=== PATIENT | female | born 1940 | race Caucasian/White ===

== ENCOUNTER 2022-01-18 14:06 | Outpatient (CLI) | payer BC, SELFPAY ==
--- NOTE | 2022-01-18 14:00 | CRLHL7_ITS ---
For Patients: As a result of the Century Cures Act, medical imaging exams and procedure reports are released immediately into your electronic medical record. You may view this report before your referring provider. If you have questions, please contact your health care provider. DXA BONE MINERAL DENSITY STUDY Reason for exam: Osteoporosis. Current height (in): 59. Weight (lb): 125. Menopause age: 55. Ethnicity: White. 1. Have you had a previous hip or vertebral fracture? Yes. 2. Have you had any fractures during your adult life which did not result from significant trauma (e.g., auto accident)? Yes. 3. Did either of your parents have a hip fracture? Yes. 4. Do you smoke? No. 5. Have you ever taken Glucocorticoids? No. 6. Do you have rheumatoid arthritis? No. 7. Do you have secondary osteoporosis? No. 8. Do you drink 3 or more alcoholic drinks per day? No. 9. Are you being treated for osteoporosis? Yes. 10. Have you ever taken any of the following medications: Actonel, Evista, Fosamax, Miacalcin, Reclast, Boniva, Forteo, HRT (i.e. estrogen/hormone therapy), Protelos, Prolia, Vitamin D, Calcium, other ??? please specify. ANSWER: Yes, Fosamax, vitamin D, calcium, Prolia. 11. Do you have any of the following medical conditions: Anorexia or bulimia, asthma or emphysema, end stage renal disease, hyperparathyroidism, any seizure disorders, cancer, inflammatory bowel diseases, hysterectomy, other ??? please specify. ANSWER: Yes, cancer, hysterectomy. 12. What was your maximum height (inches)? 61. 13. Do you perform weight bearing exercise regularly? No. 14. Do you regularly consume dairy products? Yes. 15. Do you drink caffeinated beverages? Yes. 16. At what age did your period start? 12. 17. Are you premenopausal? No. 18. How many full term pregnancies have you had? 3. 19. Have you ever missed your period for more than 6 months in a row (not including or menopause)? No. TECHNIQUE: Bone mineral density study was performed using the [employer]. FINDINGS: The results of the study expressed as bone mineral density (BMD) are as follows: Lumbar spine L1 to L4: BMD: 0.713 g/cm2. T-score: -3.0. Z-score: -0.3. Neck Right: BMD: 0.577 g/cm2. T-score: -2.5. Z-score: -0.1. Total Right: BMD: 0.735 g/cm2. T-score: -1.7. Z-score: 0.4 IMPRESSION: Osteoporosis. *Comparison exams done prior to 09/2019 were performed on different unit, [employer]. COMPARISON: Compared with scan of 12/21/2020, the bone mineral density has increased by 2.4 percent at the spine and increased by 3.7 percent at the hip. Bridgett Fleming M.D. Diagnostic/Breast Radiologist [email or web address] RICK/Dictated by: Bridgett Fleming MD @ 01/18/2022 3:23:00 PM (Electronically Signed)
== END 2022-01-18 14:07 | disposition home or self-care (01) ==
LOC: RAD 14:07
PROVIDERS: PCP Family Medicine; Visit Provider Nurse Practitioner Family
DX: M81.0 Age-related osteoporosis without current pathological fracture (principal)
CPT/HCPCS: 77080

== ENCOUNTER 2022-01-25 15:00 | Outpatient (RCR) | payer BC, SELFPAY ==
--- NOTE | 2022-01-02 08:48 | URNOTE ---
UR Note 06/21/21 per Ilana Cruz RN: Patient: Cristy Chong : 1940 Age/Sex: 81/F Unit#: [id number] Account#: Multiple Room/Bed: User: Ilana Cruz Date: 06/21/21 10:27 Type: Eligibility Determination Note... Received request for prior auth for Zoledronic Acid (J3489). Per BS, [facility] REf #[id number]
[2022-01-16 14:33] LABS: Calcium* 9.2 mg/dL (8.4-10.6); Creatinine* 0.8 mg/dL (0.5-1.5); Est. Creatinine Clearance* 31.69; Estimated Glomerular Filt Rate 74 ml/min
[2022-01-17] MEDS: ZOLEDRONIC ACID 3 MG in 0.9 % SODIUM CHLORIDE 100 ml 100 ML 400 MG IVPB (14:28)
[2022-01-17 15:01] VITALS: BP 114/72; PULSE 70; RESP 16; TEMP 36.6; O2SAT 99
== END 2022-07-15 23:59 | disposition home or self-care (01) ==
LOC: CCIC 15:00
PROVIDERS: PCP Family Medicine; Referring Provider Family Medicine; Visit Provider Nurse Practitioner Family
DX: C50.912 Malignant neoplasm of unspecified site of left female breast (principal); Z17.0 Estrogen receptor positive status [ER+]; Z79.811 Long term (current) use of aromatase inhibitors; M81.0 Age-related osteoporosis without current pathological fracture
CPT/HCPCS: 36415; 82310; 82565; 96374; 99212; 99214; J3489

== ENCOUNTER 2023-01-18 10:00 | Outpatient (RCR) | payer BC, SELFPAY ==
--- NOTE | 2022-07-18 13:47 | URNOTE ---
Request received for authorization for Zoledronic Acid (J3489). Prior authorization not required per from 07/23/2022 to 07/24/2023, 2 doses, Ref#[id number].
[2022-07-23 10:08] LABS: Chloride* 102 mmol/L (96-114); Potassium* 4.3 mmol/L (3.6-5.1); Sodium* 134 mmol/L (135-149)
[2022-07-23 10:10] LABS: Creatinine* 0.7 mg/dL (0.5-1.5); Estimated Glomerular Filt Rate 87 ml/min
[2022-07-23 10:11] LABS: Blood Urea Nitrogen* 20 mg/dL (7-30); Calcium* 8.8 mg/dL (8.4-10.6); Carbon Dioxide* 28 mmol/L (20-32); Glucose* 97 mg/dL (60-115)
[2022-07-23] MEDS: ZOLEDRONIC ACID 3 MG in 0.9 % SODIUM CHLORIDE 100 ml 100 ML 415 MG IVPB (11:15)
[2023-01-18 10:43] LABS: Creatinine* 0.8 mg/dL (0.5-1.5); Estimated Glomerular Filt Rate 74 ml/min
[2023-01-18 10:44] LABS: Calcium* 9.2 mg/dL (8.4-10.6)
== END 2023-01-19 23:59 | disposition home or self-care (01) ==
LOC: CCIC 10:00
PROVIDERS: PCP Family Medicine; Referring Provider Family Medicine; Visit Provider Internal Medicine Hematology & Oncology
DX: C50.912 Malignant neoplasm of unspecified site of left female breast (principal); Z79.810 Long term (current) use of selective estrogen receptor modulators (SERMs); M81.0 Age-related osteoporosis without current pathological fracture
CPT/HCPCS: 36415; 80048; 82310; 82565; 96374; 99212; 99214; J3489

== ENCOUNTER 2023-01-24 14:26 | Outpatient (CLI) | payer BC, SELFPAY ==
--- NOTE | 2023-01-24 15:30 | CRLHL7_ITS ---
For Patients: As a result of the Century Cures Act, medical imaging exams and procedure reports are released immediately into your electronic medical record. You may view this report before your referring provider. If you have questions, please contact your health care provider. DXA BONE MINERAL DENSITY STUDY Reason for exam: Osteoporosis. Current height (in): 59. Weight (lb): 121. Menopause age: 55. Ethnicity: White. 1. Have you had a previous hip or vertebral fracture? Yes. 2. Have you had any fractures during your adult life which did not result from significant trauma (e.g., auto accident)? Yes. 3. Did either of your parents have a hip fracture? Yes. 4. Do you smoke? No. 5. Have you ever taken Glucocorticoids? No. 6. Do you have rheumatoid arthritis? No. 7. Do you have secondary osteoporosis? No. 8. Do you drink 3 or more alcoholic drinks per day? No. 9. Are you being treated for osteoporosis? Yes. 10. Have you ever taken any of the following medications: Actonel, Evista, Fosamax, Miacalcin, Reclast, Boniva, Forteo, HRT (i.e., estrogen/hormone therapy), Protelos, Prolia, Vitamin D, Calcium, other ??? please specify. ANSWER: Yes, Fosamax, vitamin D, Prolia, and calcium. 11. Do you have any of the following medical conditions: Anorexia or bulimia, asthma or emphysema, end stage renal disease, hyperparathyroidism, any seizure disorders, cancer, inflammatory bowel diseases, hysterectomy, other ??? please specify. ANSWER: Yes, cancer and hysterectomy. 12. What was your maximum height (inches)? 61. 13. Do you perform weight bearing exercise regularly? No. 14. Do you regularly consume dairy products? Yes. 15. Do you drink caffeinated beverages? Yes. If female: 16. At what age did your period start? 12. 17. Are you premenopausal? No. 18. How many full-term pregnancies have you had? 3. 19. Have you ever missed your period for more than 6 months in a row (not including or menopause)? No. TECHNIQUE: Bone mineral density study was performed using the [employer]. FINDINGS: The results of the study expressed as bone mineral density (BMD) are as follows: Lumbar spine L1 to L4: BMD: 0.722 g/cm2. T-score: -3.0. Z-score: -0.2 Neck Right: BMD: 0.607 g/cm2. T-score: -2.2. Z-score: 0.2 Total Right: BMD: 0.744 g/cm2. T-score: -1.6. Z-score: 0.6 IMPRESSION: Osteoporosis. *Comparison exams done prior to 09/2019 were performed on different unit, [employer]. COMPARISON: Compared with scan of 01/18/2022, the bone mineral density has increased by 1.2 percent at the spine and increased by 1.1 percent at the hip. Compared with scan of 12/21/2020, the bone mineral density has increased by 2.4 percent at the spine and increased by 3.7 percent at the hip. Enrrique Jimenez M.D. Diagnostic Radiologist [email or web address] SOLIS/yoly frederick/Dictated by: Enrrique Jimenez MD @ 01/25/2023 8:47:00 AM (Electronically Signed)
== END 2023-01-24 14:27 | disposition home or self-care (01) ==
LOC: RAD 14:26
PROVIDERS: PCP Family Medicine; Visit Provider Internal Medicine Hematology & Oncology
DX: M81.0 Age-related osteoporosis without current pathological fracture (principal); M85.89 Other specified disorders of bone density and structure, multiple sites; C50.912 Malignant neoplasm of unspecified site of left female breast
CPT/HCPCS: 77080

== ENCOUNTER 2023-02-18 09:12 | Outpatient (CLI) | payer BC, SELFPAY ==
--- NOTE | 2023-02-18 09:15 | CRLHL7_ITS ---
For Patients: As a result of the Cures Act, medical imaging exams and procedure reports are released immediately into your electronic medical record. You may view this report before your referring provider. If you have questions, please contact your health care provider. Indication: Left axillary lump, history of breast cancer Technique: Grayscale and color Doppler ultrasound of the left axilla performed. Findings: An enlarged lymph node is present within the left axilla with hypoechoic internal echotexture measuring 1.2 x 1.1 x 1.1 cm. No abnormal vascularity. Impression: Enlarged left axillary lymph node measuring 1.2 cm. Biopsy recommended. However, the patient would prefer to wait 6 weeks as she recently had her influenza/COVID vaccination and there is a possibility that this is simply a reactive lymph node. Therefore, a 6 week follow-up left axillary ultrasound is recommended. If the lymph node has not changed then biopsy would be indicated. Dictated by Enrrique Jimenez MD @ 02/20/2023 6:30:12 AM (Electronically Signed)
== END 2023-02-18 09:13 | disposition home or self-care (01) ==
PROVIDERS: PCP Family Medicine; Visit Provider Internal Medicine Hematology & Oncology
DX: R22.32 Localized swelling, mass and lump, left upper limb (principal); R59.0 Localized enlarged lymph nodes; Z85.3 Personal history of malignant neoplasm of breast
CPT/HCPCS: 76882

== ENCOUNTER 2023-04-01 09:18 | Outpatient (CLI) | payer BC, SELFPAY ==
--- NOTE | 2023-04-01 09:15 | CRLHL7_ITS ---
For Patients: As a result of the Cures Act, medical imaging exams and procedure reports are released immediately into your electronic medical record. You may view this report before your referring provider. If you have questions, please contact your health care provider. INDICATION: 82-year-old female. History of LEFT-sided breast cancer. Lumpectomy. Radiation therapy. No chemotherapy. No lymph nodes were involved at the time of the initial surgery. Recent COVID-19 inoculation approximately 6 to 8 weeks ago. Follow-up a LEFT axillary lymph node. TECHNIQUE: Directed LEFT axillary ultrasound with this radiologist present. COMPARISON: 02/18/2023. FINDINGS: There is a 1.3 x 0.7 x 0.8 cm LEFT axillary lymph node oval-shaped and homogeneously hypoechoic. It maintains a reniform shape but the fatty hilus is somewhat diminutive. This could reflect a reactive lymph node. There has been no significant change when compared to 02/18/2023. Per Dr. Jimenez`s original dictation from 02/18/2023, a biopsy would be indicated. These findings were discussed in detail with the patient. She agrees to proceed with the biopsy. This will be scheduled. Impression: Hypoechoic well-circumscribed LEFT axillary lymph node. This could be reactive. Biopsy suggested. ACR not applicable Dictated by Nikita Chin MD @ 04/01/2023 12:07:52 PM (Electronically Signed)
== END 2023-04-01 09:19 | disposition home or self-care (01) ==
LOC: US 09:19
PROVIDERS: PCP Family Medicine; Visit Provider Internal Medicine Hematology & Oncology
DX: C50.912 Malignant neoplasm of unspecified site of left female breast (principal); R59.9 Enlarged lymph nodes, unspecified
CPT/HCPCS: 76882

== ENCOUNTER 2023-04-16 10:53 | Outpatient (CLI) | payer BC, SELFPAY ==
--- NOTE | 2023-04-16 11:15 | CRLHL7_ITS ---
For Patients: As a result of the Century Cures Act, medical imaging exams and procedure reports are released immediately into your electronic medical record. You may view this report before your referring provider. If you have questions, please contact your health care provider. Indication: ENLARGED LEFT AXILLARY LYMPH NODE Technique: Grayscale and color Doppler ultrasound performed. Comparison: 04/01/2023 Findings: Decreased size of the hypoechoic area of concern compared to the prior examination with real-time imaging. The area elongates with shoulder abduction during the procedure prep. Overlying vessels are present. This area does not appear suspicious and therefore no biopsy was performed. Impression: No biopsy performed. Decreased size of the previously noted lymph node. No suspicious findings. Patient is due for screening mammogram next month at [facility]. Dictated by Enrrique Jimenez MD @ 04/16/2023 12:00:17 PM (Electronically Signed)
== END 2023-04-16 10:54 | disposition home or self-care (01) ==
PROVIDERS: PCP Family Medicine; Visit Provider Internal Medicine Hematology & Oncology
DX: R59.0 Localized enlarged lymph nodes (principal)
CPT/HCPCS: 76882

== ENCOUNTER 2023-07-18 09:45 | Outpatient (RCR) | payer BC, SELFPAY ==
[2023-01-24 14:41] VITALS: BP 116/73; PULSE 67; RESP 16; TEMP 36.5; O2SAT 99
[2023-01-24] MEDS: ZOLEDRONIC ACID 3 MG in 0.9 % SODIUM CHLORIDE 100 ml 100 ML 400 MG IVPB (14:50)
--- NOTE | 2023-07-16 14:34 | URNOTE ---
Per [facility] prior authorization is not required for Zometa (J3489). REf #[id number]
[2023-07-18 10:18] LABS: Calcium* 9.3 mg/dL (8.4-10.6); Creatinine* 0.7 mg/dL (0.5-1.5); Estimated Glomerular Filt Rate 86 ml/min
[2023-07-18] MEDS: ZOLEDRONIC ACID 3 MG in 0.9 % SODIUM CHLORIDE 100 ml 100 ML 415 MG IVPB (11:12)
[2023-07-18 11:31] LABS: Basophils Percent Auto 0.9 % (0.0-3.0); Eosinophils Percent Auto 3.4 % (0.0-7.0); Hematocrit 34.6 % (33.0-51.0); Hemoglobin* 11.4 gm/dL (12.0-16.0); Immature Granulocytes Pct Auto 0.2 %; Lymphocytes Percent Auto 24.6 % (20-44); Mean Corpuscular HGB Conc 33 gm/dL (32-36); Mean Corpuscular Hemoglobin 33 pg (26-34); Mean Corpuscular Volume 99 fL (80-100); Monocytes Percent Auto 9.5 % (0.0-11.0); Neutrophils Percent Auto 61.4 % (42.0-72.0); Platelet Count* 206 K/uL (140-440); RDW Coefficient of Variation % 13.6 % (11.5-15.5); White Blood Count* 4.43 K/uL (4.50-11.00)
[2023-07-18 11:32] LABS: Albumin* 3.9 g/dL (3.3-5.0); Chloride* 104 mmol/L (96-114); Potassium* 4.6 mmol/L (3.6-5.1); Sodium* 147 mmol/L (135-149)
[2023-07-18 11:34] LABS: Bilirubin Total* 0.4 mg/dL (0.1-1.5); Creatinine* 0.7 mg/dL (0.5-1.5); Estimated Glomerular Filt Rate 86 ml/min; Slide Review Reflex No
[2023-07-18 11:35] LABS: Alanine Aminotransferase* 18 U/L (4-35); Alkaline Phosphatase* 41 U/L (40-150); Anion Gap 17 mEq/L (7-15); Aspartate Amino Transferase* 52 U/L (12-35); Blood Urea Nitrogen* 18 mg/dL (7-30); Carbon Dioxide* 26 mmol/L (20-32); Glucose* 90 mg/dL (60-115); Total Protein* 6.9 g/dL (6.0-8.3)
[2023-07-18 11:36] LABS: Calcium* 9.4 mg/dL (8.4-10.6); Magnesium* 2.2 mg/dL (1.5-2.6)
[2023-07-18 12:11] LABS: Thyroid Stimulating Hormone* < 0.015 uIU/mL (0.270-4.20)
[2023-07-18 12:32] LABS: Vitamin B12* > 1000 pg/mL (243-894)
[2023-07-18 16:41] LABS: Free T4 Free Thyroxine* 1.95 ng/dL (0.70-1.85)
== END 2023-07-23 23:59 | disposition home or self-care (01) ==
LOC: CCIC 09:45
PROVIDERS: Internal Medicine Hematology & Oncology; PCP Family Medicine; Referring Provider Family Medicine; Visit Provider Physician Assistant
DX: C50.912 Malignant neoplasm of unspecified site of left female breast (principal); Z17.0 Estrogen receptor positive status [ER+]; Z79.810 Long term (current) use of selective estrogen receptor modulators (SERMs); M81.0 Age-related osteoporosis without current pathological fracture; E03.9 Hypothyroidism, unspecified; D64.9 Anemia, unspecified; R20.0 Anesthesia of skin; K22.70 Barrett's esophagus without dysplasia
CPT/HCPCS: 36415; 80053; 82310; 82565; 82607; 83735; 84439; 84443; 85025; 96365; 99212; 99214; 99215; G0463; J3489

== ENCOUNTER 2023-08-26 09:49 | Outpatient (CLI) | payer BC, SELFPAY ==
--- OUTSIDE RECORDS SUMMARY | 2023-08-26 09:53 | XMS_ITS | Clinical Summary ---
Author Name Unknown Organization [facility] Address [place], [place] [address] Care Team Providers Care Erp Engineer Name Role Phone Dimitrios Ireland MD Unavailable [phone] Tyrone Mccloud MD Unavailable Unavailable Brooke Basilio MD Primary Care Provide r Allergies Active Allergy Reactions Criticality Noted Date Comments Adhesive Itching 06/16/2020 Medications Medication Sig Dispensed Refills Start Date End Date Status Calcium-Cholecalcife rol, D3, (CALCIUM 500+D) 500 mg(1,250mg) -400 unit chewable tablet Chew 1 Tablet by mouth once daily. 0 01/31/2010 Active biotin 1 mg cap Take 1 Capsule by mouth once daily. 0 03/14/2018 Active tamoxifen (NOLVADEX) 20 mg tablet Take 20 mg by mouth at bedtime. 03/17/2022 Active omeprazole (PRILOSEC) 40 mg Delayed-Release capsuleIndications:G astroesophageal reflux disease, unspecified whether esophagitis present Take 1 Capsule (40 mg) by mouth once daily. 90 Capsule 3 05/30/2023 Active levothyroxine (SYNTHROID) 88 mcg tabletIndications:Hy pothyroidism, unspecified type Take 1 Tablet (88 mcg) by mouth once daily. 90 Tablet 3 05/30/2023 Active clobetasol 0.05% (Temovate) 0.05 % ointmentIndications: Lichen sclerosus Apply topically to affected area(s) two times daily. Once weekly 60 g 3 05/30/2023 Active nystatin-triamcinolo ne (MYTREX) ointmentIndications: Drooling Apply topically to affected area(s) two times daily. 15 g 08/15/2023 Active Active Problems Problem Noted Date Diagnosed Date Closed fracture of left inferior pubic ramus Primary osteoarthritis of right knee 03/19/2022 Tear of right rotator cuff 03/19/2022 Primary cancer of left breast 05/18/2021 Routine adult health maintenance 11/17/2014 Overview: Colonoscopy 11/2014 normal , no follow-up needed Female bladder prolapse 02/06/2013 Lichen sclerosus 07/24/2012 GERD (gastroesophageal reflux disease) 0 Overview: EGD 09/2008 reflux, past Arana's on biopsy , repeat EGD in 5 years EGD 11/2014 reflux, no Arana's esophagus, no repeat endoscopy needed Unspecified hypothyroidism 01/28/2009 Osteopenia 01/28/2009 Pure hypercholesterolemia 01/28/2009 Resolved Problems Problem Noted Date Diagnosed Date Resolved Date Anticoagulation monitoring, special range (1.8-2.5) 07/06/2013 05/05/2014 [facility] (current) use of anticoagulants 07/06/2013 03/09/2016 Encounters Date Type Department Care Team Description 08/15/2023 1:25 PM CDT Preop Visit [facility] [address] [place] [address] Brooke Basilio MD Pre-Op Exam (endoscopy Dr. Wilson ); Mouth/Lip Problem (5 weeks drooling, swelling of the lips, numbness of the lips and tongue, burning in the mouth, worse when brushing teeth with tooth paste. Salty things might make it burn./Redness from drooling. Crusty around the mouth in the morning/Taste is off.) 08/15/2023 Travel 07/22/2023 Orders Only [facility] Scanner 1 scan: (1-Ord) INCOMING RECORDS-LABS, [facility] and [facility], 07/22/2023 05/30/2023 1:25 PM HOSPICE PHYSICIAN Office Visit [facility] [address] [place] [address] Brooke Basilio MD Medicare ANNUAL (subsequent) Visit (82 yo Female) 05/30/2023 Telephone [facility] [address] [place] [address] Brody Wilson MD Pre Procedure 05/30/2023 Travel from Last 3 Months Immunizations Name Administration Dates Next Due COVID-19 Vaccine Spikevax (M oderna 50mcg/0.5mL) 12YO+ 5935-5502 Formula PF 01/30/2023 COVID-19 vaccine (Pfizer-Bio NTech 30mcg/0.3mL) 12YO+ BIVALENT PF, MDV 08/16/2022,01/23/2022 COVID-19 vaccine (Pfizer-Bio NTech 30mcg/0.3mL) 12YO+ MERLIN-SUCROSE PF, MDV 07/26/2021 COVID-19 vaccine (Pfizer-Bio NTech 30mcg/0.3mL) PF, MDV 06/16/2020,05/25/2020 Influenza, Inactivated AIIV4 (Age 65+ Years) Preserv Free 01/30/2023,05/24/2022,05/18/2021 Pneumococcal Conj 20-valent (Prevnar 20) 023 Pneumococcal Poly,23-Valent (Pneumovax) 02/05/20 06 Pneumococcal conj 13-Valent (Prevnar 13) 015 Td (Age >=7 Years) 04/24/2005 Td, Preservative Free (age >= 7 Years) 6 Tdap 03/09/2016 Tuberculin (PPD) 01/21/2007 Zoster (Shingrix-RZV, recombinant) 08/25/2020, Zoster (Zostavax-ZVL, live) 02/05/2011 Family History Medical History Relation Name Comments Cancer-breast Mother Other Mother esophageal ca Relation Name Status Comments Mother Social History Tobacco Use Types Packs/Day Years Used Date Smoking Tobacco: Never Smokeless Tobacco: Never Tobacco Cessation:Counseling Given: Yes Alcohol Use Standard Drinks/Week Comments Yes 0 (1 standard drink = 0.6 oz pur e alcohol) not often PHQ-2 Answer Date Recorded PHQ-2 TOTAL SCORE 0 05/30/2023 Social Connections Answer Date Recorded Frequency of Communication with Friends and Fami ly 0 03/27/2023 Financial Resource Strain Answer Date R ecorded Difficulty of Paying Living Expenses 3 03/27/2023 Difficulty of Paying Living Expenses Not on file 03/27/2023 Food Insecurity Answer Date Recorded Worried About Running Out of Food in the Last Ye ar 1 03/27/2023 Transportation Needs Answer Date Record ed Lack of Transportation (Medical) 1 03/27/2023 Housing Stability Answer Date Recorded Unable to Pay for Housing in the Last Year 1 03/27/2023 Sex and Gender Information Value Date Recorded Sex Assigned at Not on file Gender Identity Not on file Sexual Orientation Not on file Obstetrics History Para Term AB IAB SAB Ectopic Multiple Livin g Live Births 3 3 3 3 Date Outcome GA Total Labor Labor/2nd/3rd Weight Sex Delivery Anes PTL Gina A1 A5 Name Cl in Term Term Term Last Filed Vital Signs Vital Sign Reading Time Taken Comments Blood Pressure 113/69 08/15/2023 2:08 PM CDT Pulse 65 08/15/2023 2:08 PM CDT Temperature 36.8 ??C (98.3 ??F) 03/28/2023 7:42 AM CS T Respiratory Rate 16 03/28/2023 7:42 AM HOSPICE PHYSICIAN Oxygen Saturation 97% 08/15/2023 2:08 PM CDT Inhaled Oxygen Concentration - - Weight 55.8 kg (123 lb) 08/15/2023 2:08 PM CDT Height 150.5 cm (4' 11.25) 05/30/2023 1:[address] Body Mass Index 24.63 05/30/2023 1:39 PM HOSPICE PHYSICIAN Plan of Treatment Health Maintenance Due Date Last Done Comments COVID-19 vaccine series ( season) 2023 01/30/2023, 08/16/2022, 01/23/2022, Additional history exists Influenza for age 65+ 12/15/2023 01/30/2023 , 05/24/2022, 05/18/2021 BMI (ht and wt on same day) for age 18+ 05/30/2024 05/30/2023, 05/24/2022, 03/19/2022, Additional history exists Depression screening for age 12+ 05/30/2024 05/30/2023, 05/30/2023, 05/24/2022, Additional history exists Tetanus booster 03/09/2026 03/09/2016, 04/15, 04/24/2005 Tdap Completed 03/09/2016 Zoster (shingles) series for age 50+ Completed 08/25/2020, 05/10/2020, 02/05/2011 Pneumococcal series for age 65+ Completed 06/13/2022, 03/02/2015, 02/04/2006 DEXA/DXA scan for age 65+ Completed 2022, 01/18/2022, 05/10/2020, Additional history exists Procedures Procedure Name Priority Date/Time Associated Diagnosis Comments ESOPHAGOGASTRODUODENOSCOPY Routine 08/25 7:59 AM CDT 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 ACOSTA PREP,SKIN,HAIR,NAIL Routine 08/15/19 3:11 PM CDT Mouth pain SCAN CORRESP-LABORATORY RESULTS 07/22/2023 12:00 AM CDT CBC WITH AUTO DIFFERENTIAL Routine 05/30 2:44 PM HOSPICE PHYSICIAN 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 VITAMIN D 25 (DEFICIENCY) Routine 2023 2:44 PM HOSPICE PHYSICIAN Osteoporosis, unspecified osteoporosis type, unspecified pathological fracture presence CBC WITH AUTO DIFFERENTIAL Routine 05/30 2:44 PM HOSPICE PHYSICIAN 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 TSH WITH REFLEX Routine 05/30/2023 2:44 PM HOSPICE PHYSICIAN Hypothyroidism, unspecified type BASIC METABOLIC PANEL Routine 05/30/2023 2:44 PM HOSPICE PHYSICIAN Osteoporosis, unspecified osteoporosis type, unspecified pathological fracture presence SCAN-BONE DENSITOMETRY DEXA 01/13 12:00 AM CDT from Last 3 Months or Most Recently Relevant to Health Maintenance Results * ACOSTA PREP,SKIN,HAIR,NAIL (08/15/2023 3:11 PM CDT) OBSERVATION No fungal elements seen 08/15/2023 3:27 PM CDT [facility] Other ORAL CAVITY SPECIMEN / Unknown Non-Blood / Unknown 08/15/2023 3:11 PM CDT 08/15/2023 3:13 PM CDT Brooke Basilio MD MICROBIOLOGY [facility] [address] [place] [address], * SCAN CORRESP-LABORATORY RESULTS (07/22/2023 12:00 AM CDT) Scanner OTHER * (ABNORMAL) CBC WITH AUTO DIFFERENTIAL (05/30/2023 2:44 PM HOSPICE PHYSICIAN) WHITE BLOOD COUNT 6.0 4.5 - 11.0 thou/cu mm 05/30/2023 2:51 PM HOSPICE PHYSICIAN [facility] RED BLOOD COUNT 3.40(L) 4.00 - 5.20 mil/cu mm 05/30/2023 2:51 PM HOSPICE PHYSICIAN [facility] HEMOGLOBIN 11.3(L) 12.0 - 16.0 g/dL 05/30/2023 2:51 PM HOSPICE PHYSICIAN [facility] HEMATOCRIT 33.1 33.0 - 51.0 % 05/30/2023 2:51 PM HOSPICE PHYSICIAN [facility] MCV 97 80 - 100 fL 05/30/2023 2:51 PM HOSPICE PHYSICIAN [facility] MCH 33.2 26.0 - 34.0 pg 05/30/2023 2:51 PM HOSPICE PHYSICIAN [facility] MCHC 34.1 32.0 - 36.0 g/dL 05/30/2023 2:[address] [facility] RDW 15.2 11.5 - 15.5 % 05/30/2023 2:51 PM HOSPICE PHYSICIAN [facility] PLATELET COUNT 213 140 - 440 thou/cu mm 05/30/2023 2:[address] [facility] MPV 9.6 6.5 - 11.0 fL 05/30/2023 2:51 PM HOSPICE PHYSICIAN [facility] % NEUT 58.6 % 05/30/2023 2:51 PM HOSPICE PHYSICIAN [facility] % LYMPH 26.2 % 05/30/2023 2:51 PM HOSPICE PHYSICIAN [facility] % MONO 10.5 % 05/30/2023 2:51 PM HOSPICE PHYSICIAN [facility] % EOS 4.2 % 05/30/2023 2:51 PM HOSPICE PHYSICIAN [facility] % BASO 0.5 % 05/30/2023 2:51 PM HOSPICE PHYSICIAN [facility] ABSOLUTE NEUTROPHILS 3.5 1.7 - 7.0 thou/cu mm 05/30/2023 2:51 PM HOSPICE PHYSICIAN [facility] ABSOLUTE LYMPHOCYTES 1.6 0.9 - 2.9 thou/cu mm 05/30/2023 2:51 PM HOSPICE PHYSICIAN [facility] ABSOLUTE MONOCYTES 0.6 <0.9 thou/cu mm 05/30/2023 2:51 PM HOSPICE PHYSICIAN [facility] ABSOLUTE EOSINOPHILS 0.3 <0.5 thou/cu mm 05/30/2023 2:51 PM HOSPICE PHYSICIAN [facility] ABSOLUTE BASOPHILS 0.0 <0.3 thou/cu mm 05/30/2023 2:51 PM HOSPICE PHYSICIAN [facility] Blood BLOOD SPECIMEN / Unknown Venipuncture / Unknown 05/30/2023 2:44 PM HOSPICE PHYSICIAN 05/30/2023 2:46 PM HOSPICE PHYSICIAN Brooke Basilio MD HEMATOLOGY [facility] [address] [place] [address], * TSH WITH REFLEX (05/30/2023 2:44 PM HOSPICE PHYSICIAN) TSH 2.78 0.27 - 4.20 uIU/mL 05/30/2023 9:47 PM HOSPICE PHYSICIAN [facility] Blood BLOOD SPECIMEN / Unknown Venipuncture / Unknown 05/30/2023 2:44 PM HOSPICE PHYSICIAN 05/30/2023 2:46 PM HOSPICE PHYSICIAN Narrative [facility] - 05/30/2023 9:47 PM HOSPICE PHYSICIAN In Adults, TSH values between 5.00 and 10.00 uIU/ml do not necessarily indicate the presence of Hypothyroidism. Correlation with clinical findings such as presence of goiter and/or Thyroperoxidase (TPO) Antibody may be helpful. For more information please refer to ELIE 2004; 291: 228-238. Brooke Basilio MD CHEMISTRY Performing Organization Address [facility]/ZIP Co de Phone Number [facility] [address] [place] [address], * VITAMIN D 25 (DEFICIENCY) (05/30/2023 2:44 PM HOSPICE PHYSICIAN) Pathologist [facility] VITAMIN D TOTAL 45.2 20.0 - 80.0 ng/mL 05/30/2023 9:47 PM HOSPICE PHYSICIAN [facility] Blood BLOOD SPECIMEN / Unknown Venipuncture / Unknown 05/30/2023 2:44 PM HOSPICE PHYSICIAN 05/30/2023 2:46 PM HOSPICE PHYSICIAN Narrative [facility] - 05/30/2023 9:47 PM HOSPICE PHYSICIAN ? Vitamin D Status Deficiency: ? <20 ng/mL Insufficiency: ?20-29 ng/mL Sufficiency: ?30-80 ng/mL Possible Toxicity: ??>80 ng/mL Based on [place] of Medicine recommendations Biotin supplements may cause clinically significant interference for this test assay. ??If interference is suspected, it is strongly recommended that biotin is discontinued for at least one week prior to retesting. Brooke Basilio MD SEND OUTS Performing Organization Address [facility] Co de Phone Number [facility] [address] [place] [address], * (ABNORMAL) BASIC METABOLIC PANEL (05/30/2023 2:44 PM HOSPICE PHYSICIAN) SODIUM 138 136 - 145 mmol/L 05/30/2023 9:47 PM HOSPICE PHYSICIAN [facility] POTASSIUM 4.4 3.5 - 5.1 mmol/L 05/30/2023 9:47 PM [facility] CHLORIDE 103 98 - 107 mmol/L 05/30/2023 9:47 PM [facility] CO2,TOTAL 27 22 - 29 mmol/L 05/30/2023 9:47 PM [facility] ANION GAP 8 5 - 18 05/30/2023 9:47 PM [facility] GLUCOSE 107(H) 70 - 99 mg/dL 05/30/2023 9:47 PM [facility] CALCIUM 9.5 8.8 - 10.2 mg/dL 05/30/2023 9:47 PM [facility] BUN 18 8 - 23 mg/dL 05/30/2023 9:47 PM [facility] CREATININE 0.69 0.50 - 0.90 mg/dL 05/30/2023 9:47 PM [facility] BUN/CREAT RATIO 26(H) 10 - 20 9:47 PM [facility] eGFR 87(L) >90 mL/min/1.7 3m2 05/30/2023 9:47 PM [facility] Comment:As of 2021, eG FR is calculated by the CKD-EPI creatinine equation without race adjustment. ??eGFR can be influenced by muscle mass, exercise, and diet. ??The reported eGFR is an estimation only and is only applicable if the renal function is stable. Blood BLOOD SPECIMEN / Unknown Venipuncture / Unknown 05/30/2023 2:44 PM HOSPICE PHYSICIAN 05/30/2023 2:46 PM HOSPICE PHYSICIAN Brooke Basilio MD [facility]Y [facility] [address] [place] [address], * SCAN-BONE DENSITOMETRY DEXA (01/24/2023 12:00 AM CDT) Anatomical Region Laterality Modality Other Scanner OTHER from Last 3 Months or Most Recently Relevant to Health Maintenance Advance Directives * Full Code (Latest Code Status on File) Date Activated Date Inactivated Comments 03/27/2023 7:27 PM 03/28/2023 1:39 PM Question Answer Comments Code Status Discussion: Reviewed Preferences Care Teams Erp Engineer Relationship Specialty Start Date End Date Brooke Basilio MD [address] [place] [address] PCP - General Family Practice 05/10/20 Dimitrios Ireland MD 02/08/14 Tyrone Mccloud MD [address] [place] [address] Ophthalmology Surgery 02/08/14
--- NOTE | 2023-08-26 11:20 | W.ANESCHARGE ---
Anesthesia Charges Start Date/Time Anesthesia Start Date: 08/26/23 Anesthesia Start Time: 11:00 Stop Date/Time Anesthesia Stop Date: 08/26/23 Anesthesia Stop Time: 11:18
--- NOTE | 2023-08-26 11:52 | W.ANESCHARGE ---
Anesthesia Charges Start Date/Time Anesthesia Start Date: 08/26/23 Anesthesia Start Time: 11:00 Stop Date/Time Anesthesia Stop Date: 08/26/23 Anesthesia Stop Time: 11:18 Summary Extremes of Age - Over 70 or under 1: MDA
== END 2023-08-26 09:50 | disposition home or self-care (01) ==
LOC: OP CLINIC 09:50
PROVIDERS: PCP Family Medicine; Visit Provider Internal Medicine Gastroenterology
DX: K22.70 Barrett's esophagus without dysplasia (principal); K44.9 Diaphragmatic hernia without obstruction or gangrene; K31.7 Polyp of stomach and duodenum
CPT/HCPCS: 00731; 43239; 88305; 99100; J2704

== ENCOUNTER 2024-01-27 13:52 | Outpatient (RCR) | payer BC, SELFPAY ==
--- NOTE | 2023-10-16 13:23 | ONC.NURNOTE ---
Addendum entered by Miya Neves 10/16/23 15:04: Spoke with both María and the [facility]. I confirmed with the pharmacy and patient informed that on 07/17, a new one year Rx was sent to the pharmacy. Patient verbalizes understanding. Original Note: María called for a Tamoxifen refill. She has 12 left. She takes one a day. She goes to [facility] in [place]. her phone number is [phone]
--- NOTE | 2024-01-14 10:37 | ONC.NURNOTE ---
Patient left a message on Radiology line that she needs to change her appt on 01/15. RN attempted to call patient to reschedule. No answer. LVM for patient to call back if she needs to change her appt.
[2024-01-27 14:15] LABS: Basophils Absolute Auto 0.04 K/uL (0.00-0.30); Basophils Percent Auto 0.8 % (0.0-3.0); Eosinophils Absolute Auto 0.16 K/uL (0.00-0.50); Eosinophils Percent Auto 3.1 % (0.0-7.0); Hematocrit 34.7 % (33.0-51.0); Hemoglobin* 11.5 gm/dL (12.0-16.0); Lymphocytes Absolute Auto 1.17 K/uL (0.90-2.90); Lymphocytes Percent Auto 22.5 % (20-44); Mean Corpuscular HGB Conc 33 gm/dL (32-36); Mean Corpuscular Hemoglobin 33 pg (26-34); Mean Corpuscular Volume 98 fL (80-100); Monocytes Percent Auto 11.1 % (0.0-11.0); Neutrophils Absolute Auto 3.26 K/uL (1.7-7.0); Neutrophils Percent Auto 62.5 % (42.0-72.0); Platelet Count* 179 K/uL (140-440); RDW Coefficient of Variation % 14.2 % (11.5-15.5); Red Blood Count 3.53 m/uL (4.00-5.20); White Blood Count* 5.21 K/uL (4.50-11.00)
[2024-01-27 14:18] LABS: Slide Review Reflex No
[2024-01-27 14:50] LABS: Albumin* 4.2 g/dL (3.3-5.0); Chloride* 100 mmol/L (96-114); Potassium* 4.1 mmol/L (3.6-5.1); Sodium* 136 mmol/L (135-149)
[2024-01-27 14:53] LABS: Alanine Aminotransferase* 18 U/L (4-35); Alkaline Phosphatase* 32 U/L (40-150); Anion Gap 5 mEq/L (7-15); Aspartate Amino Transferase* 26 U/L (12-35); Bilirubin Total* 0.2 mg/dL (0.1-1.5); Blood Urea Nitrogen* 20 mg/dL (7-30); Carbon Dioxide* 31 mmol/L (20-32); Creatinine* 0.7 mg/dL (0.5-1.5); Est. Creatinine Clearance* 37.64; Estimated Glomerular Filt Rate 86 ml/min; Glucose* 88 mg/dL (60-115); Total Protein* 7.1 g/dL (6.0-8.3)
[2024-01-27 14:54] LABS: Calcium* 9.4 mg/dL (8.4-10.6)
[2024-01-27] MEDS: ZOLEDRONIC ACID 3 MG in 0.9 % SODIUM CHLORIDE 100 ml 100 ML 400 MG IVPB (15:18)
[2024-01-29 00:07] LABS: Calcium* 9.5 mg/dL (8.4-10.6); Creatinine* 0.8 mg/dL (0.5-1.5); Est. Creatinine Clearance* 37.64; Estimated Glomerular Filt Rate 73 ml/min
== END 2024-07-25 23:59 | disposition home or self-care (01) ==
LOC: CCIC 13:52
PROVIDERS: Clinical Nurse Specialist; PCP Family Medicine; Referring Provider Family Medicine; Visit Provider Physician Assistant
DX: C50.912 Malignant neoplasm of unspecified site of left female breast (principal); Z17.0 Estrogen receptor positive status [ER+]; M81.0 Age-related osteoporosis without current pathological fracture; K22.70 Barrett's esophagus without dysplasia; R20.0 Anesthesia of skin; E03.9 Hypothyroidism, unspecified; D64.9 Anemia, unspecified; Z79.810 Long term (current) use of selective estrogen receptor modulators (SERMs)
CPT/HCPCS: 36415; 80050; 80053; 82310; 82565; 84443; 85025; 96365; 96374; 99214; G0463; J3489

== ENCOUNTER 2024-08-20 12:20 | Outpatient (RCR) | payer BC, SELFPAY ==
--- NOTE | 2024-08-11 12:00 | URNOTE ---
Prior auth is not required for Zoledronic acid 08/06/24-08/05/2025. ref #[id number]
[2024-08-20 12:59] LABS: Calcium* 9.4 mg/dL (8.4-10.6); Creatinine* 0.7 mg/dL (0.5-1.5); Est. Creatinine Clearance* 37.82; Estimated Glomerular Filt Rate 86 ml/min
[2024-08-20] MEDS: ZOLEDRONIC ACID 3 MG in 0.9 % SODIUM CHLORIDE 100 ml 100 ML 400 MG IVPB (13:47)
[2024-08-20 14:00] LABS: Iron* 143 ug/dL (37-170)
[2024-08-20 14:09] LABS: Percent Iron Saturation 50 % (20-50); Total Iron Binding Capacity 284 ug/dL (265-497)
[2024-08-20 15:37] LABS: Vitamin B12* > 1000 pg/mL (243-894)
[2024-08-21 12:47] LABS: Folate, Serum 11.1 ng/mL (>=5.9)
--- NOTE | 2025-02-10 15:27 | ONC.NURNOTE ---
Patient called for prescription refill and to follow up on next zometa- which was placed on hold- due in January 2025 commercial underwriter reviewed with Dr Smith- orders placed for dexa scan prior to follow up on 03/17 and then the tenative plan is to get lab -zometa- and Dr Smith appt on the same day message left on voicemail to call
== END 2025-02-16 23:59 | disposition home or self-care (01) ==
LOC: CCIC 12:20
PROVIDERS: PCP Family Medicine; Referring Provider Family Medicine; Visit Provider Physician Assistant
DX: C50.912 Malignant neoplasm of unspecified site of left female breast (principal); Z17.0 Estrogen receptor positive status [ER+]; M81.0 Age-related osteoporosis without current pathological fracture; K22.70 Barrett's esophagus without dysplasia; E03.9 Hypothyroidism, unspecified; D64.9 Anemia, unspecified; Z79.810 Long term (current) use of selective estrogen receptor modulators (SERMs)
CPT/HCPCS: 36415; 82310; 82565; 82607; 82728; 82746; 83540; 83550; 96365; 99214; G0463; J3489

== ENCOUNTER 2024-09-02 10:45 | Outpatient (CLI) | payer BC, SELFPAY ==
--- NOTE | 2024-09-02 10:45 | CRLHL7_ITS ---
For Patients: As a result of the Cures Act, medical imaging exams and procedure reports are released immediately into your electronic medical record. You may view this report before your referring provider. If you have questions, please contact your health care provider. LEFT DIAGNOSTIC MAMMOGRAM WITH COMPUTER-AIDED DETECTION AND TOMOSYNTHESIS LEFT BREAST ULTRASOUND CLINICAL HISTORY: LEFT breast lump. COMPARISON: 05/29/2024, 05/23/2023, 05/16/2022. TECHNIQUE: Digital LEFT mammogram in two projections with computer-aided detection. Tomosynthesis was used in this interpretation. Real-time ultrasound imaging of LEFT breast with imaging documentation. Scanning was performed by both the technologist and the radiologist. BREAST COMPOSITION: There are scattered areas of fibroglandular density. FINDINGS: 3D CC/MLO LEFT breast mammogram images submitted. Postop changes lumpectomy upper-outer quadrant LEFT breast. No suspicious findings. No adenopathy. Targeted LEFT breast ultrasound performed in the upper-outer quadrant. At 2 o`clock, 5 cm from the nipple, there is expected scar tissue with hypoechoic internal echotexture. No suspicious findings. IMPRESSION: Expected scar tissue. No evidence of malignancy. RECOMMENDATIONS: Routine screening mammography. A lay language report of this examination will be provided to the patient. BI-RADS Category 2: Benign Dictated by Enrrique Jimenez MD @ 09/02/2024 11:54:13 AM /sp SP/Dictated by: Enrrique Jimenez MD @ 09/02/2024 11:54:00 AM (Electronically Signed)
--- NOTE | 2024-09-02 11:15 | CRLHL7_ITS ---
For Patients: As a result of the Century Cures Act, medical imaging exams and procedure reports are released immediately into your electronic medical record. You may view this report before your referring provider. If you have questions, please contact your health care provider. PLEASE SEE LEFT BREAST DIAGNOSTIC MAMMOGRAM PERFORMED SAME DAY. CRL:sp SP/Dictated by: Enrrique Jimenez MD @ 09/02/2024 12:06:00 PM (Electronically Signed)
== END 2024-09-02 10:46 | disposition home or self-care (01) ==
LOC: MAMMO 10:45
PROVIDERS: PCP Family Medicine; Visit Provider Physician Assistant
DX: N63.21 Unspecified lump in the left breast, upper outer quadrant (principal)
CPT/HCPCS: 76642; 77065; G0279

== ENCOUNTER 2025-03-04 15:16 | Outpatient (CLI) | payer BC, SELFPAY ==
--- NOTE | 2025-03-04 15:30 | CRLHL7_ITS ---
For Patients: As a result of the Century Cures Act, medical imaging exams and procedure reports are released immediately into your electronic medical record. You may view this report before your referring provider. If you have questions, please contact your health care provider. DXA BONE MINERAL DENSITY STUDY Reason for exam: Postmenopausal. 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 Current height (in): 59. Weight (lb): 121. Menopause age: 55. Ethnicity: White. 1. Have you had a previous hip or vertebral fracture? Yes. 2. Have you had any fractures during your adult life which did not result from significant trauma (e.g., auto accident)? Yes. 3. Did either of your parents have a hip fracture? Yes. 4. Do you smoke? No. 5. Have you ever taken Glucocorticoids? No. 6. Do you have rheumatoid arthritis? No. 7. Do you have secondary osteoporosis? No. 8. Do you drink 3 or more alcoholic drinks per day? No. 9. Are you being treated for osteoporosis? Yes. 10. Have you ever taken any of the following medications: Actonel, Evista, Fosamax, Miacalcin, Reclast, Boniva, Forteo, HRT (i.e. estrogen/hormone therapy), Protelos, Prolia, Vitamin D, Calcium, other ??? please specify. ANSWER: Yes, Fosamax (i.e., alendronate), Vitamin D, Prolia (i.e., denosumab), and Calcium. 11. Do you have any of the following medical conditions: Anorexia or bulimia, asthma or emphysema, end stage renal disease, hyperparathyroidism, any seizure disorders, cancer, inflammatory bowel diseases, hysterectomy, other ??? please specify. ANSWER: Yes, cancer and hysterectomy. 12. What was your maximum height (inches)? 61. 13. Do you perform weight bearing exercise regularly? No. 14. Do you regularly consume dairy products? Yes. 15. Do you drink caffeinated beverages? Yes. 16. At what age did your period start? 12. 17. Are you premenopausal? No. 18. How many full-term pregnancies have you had? 3. 19. Have you ever missed your period for more than 6 months in a row (not including or menopause)? No. TECHNIQUE: Bone mineral density study was performed using the [employer]. FINDINGS: The results of the study expressed as bone mineral density (BMD) are as follows: Lumbar spine L1 to L4: BMD: 0.779 g/cm2. T-score: -2.4. Z-score: 0.4. Neck Right: BMD: 0.635 g/cm2. T-score: -1.9. Z-score: 0.6. Total Right: BMD: 0.735 g/cm2. T-score: -1.7. Z-score: 0.6. IMPRESSION: Osteopenia. *Comparison exams done prior to 09/2019 were performed on different unit, [employer]. COMPARISON: Compared with scan of 01/24/2023, the bone mineral density has increased by 8.0 percent at the spine and decreased by 1.1 percent at the hip. Compared with scan of 01/18/2022, the bone mineral density has increased by 1.2 percent at the spine and increased by 1.1 percent at the hip. Enrrique Jimenez M.D. Diagnostic Radiologist [email or web address] SOLIS/yoly frederick/Dictated by: Enrrique Jimenez MD @ 03/05/2025 9:21:00 AM (Electronically Signed)
== END 2025-03-04 15:17 | disposition home or self-care (01) ==
LOC: RAD 15:19
PROVIDERS: PCP Family Medicine; Visit Provider Internal Medicine Hematology & Oncology
DX: N95.9 Unspecified menopausal and perimenopausal disorder (principal); M85.89 Other specified disorders of bone density and structure, multiple sites; C50.912 Malignant neoplasm of unspecified site of left female breast; M81.0 Age-related osteoporosis without current pathological fracture
CPT/HCPCS: 77080